=== PATIENT | male | born 1960 | race Caucasian/White ===

== ENCOUNTER 2025-02-20 15:02 | Outpatient (OUT) | payer BC, SELFPAY ==
--- OUTSIDE RECORDS SUMMARY | 2025-02-11 16:00 | XMS_ITS | Encounter Summary ---
Author Organization [facility] Address [address] [place] [address] Care Team Providers Care Packager And Strapper Name Role Phone Veronica Hall ERNESTO - CAR PORTER Primary Care Pro vider Reason for Visit * Reason Comments New Patient New patient is here today for Elevated PSA. PSA is 2.44. Patient denies new onset hip/back pain, unintentional weight loss, hematuria, dysuria, frequency, incontinence or hesitancy. Nocturia X0-1. Patient has daily BM. Encounter Details Date Type Department Care Team (Late st Contact Info) Description 02/11/2025 4:00 PM EDT Office Visit [facility] Part of [address] [address] Mansoor Gonzalez MD [address] [place] [address], [facility] [address] [place] [address] Increased prostate specific antigen (PSA) velocity (Primary Dx) Social History Tobacco Use Types Packs/Day Years Used Date Smoking Tobacco: Never Smokeless Tobacco: Never Alcohol Use Standard Drinks/Week Comments Yes 12 (1 standard drink = 0.6 oz pu re alcohol) Sex and Gender Information Value Date Recorded Sex Assigned at Not on file Legal Sex Male 2:33 PM EST Gender Identity Not on file Sexual Orientation Not on file documented as of this encounter Last Filed Vital Signs Vital Sign Reading Time Taken Comments Blood Pressure 130/80 02/11/2025 3:56 PM EDT Pulse - - Temperature 36.4 C (97.5 F) 02/11/2025 3:56 PM EDT Respiratory Rate - - Oxygen Saturation - - Inhaled Oxygen Concentration - - Weight 75.3 kg (166 lb) 02/11/2025 3:56 PM EDT Height - - Body Mass Index 26 02/22/2022 9:55 AM EDT documented in this encounter Patient Instructions * Patient Instructions* Alicja Lopez RN - 02/11/2025 3:53 PM EDT Survey: You may be receiving a survey from [employer] regarding your visit today. Please complete the survey to enable us to provide the highest quality of care to you and your family. If you cannot score us as very good on any question, please call the office to discuss how we couldhave major experience exceptional. Thank you Your Urology Care Team. documented in this encounter Progress Notes * Mansoor Gonzalez MD - 02/11/2025 4:27 PM EDT HPI: Patient is a 64 y.o. male in no acute distress. He is alert and oriented to person, place, and time. Pt is here today for elevated PSA velocity. Pt was referred here by Veronica Jolly CNP. Pt does have a paternal uncle with prostate cancer. Pt has never seen in the past. Patient does reportthat his PSA has gone up recently. Patient does not have any family history of breast cancer or ovarian cancer. Patient has minimal lower urinary tract symptoms. He reports no gross hematuria or dysuria. He is never take any medication open void. Patient has no unintentional weight loss decreased appetite. No pain today. PSA 12/2024 - 2.44 Past Medical History: Diagnosis Date Gout Past Surgical History: Procedure Laterality Date APPENDECTOMY LEG SURGERY Left ORIF tibial plateau LEG SURGERY Left 02/22/2022 TIBIAL PLATEAU OPEN REDUCTION INTERNAL FIXATION performed by Gael Pagan MD at [facility] OR Outpatient Encounter Medications as of 02/11/2025 Medication Sig Dispense Refill methylPREDNISolone (MEDROL) 4 MG tablet Take 1 tablet by mouth as needed allopurinol (ZYLOPRIM) 100 MG tablet Take 1 tablet by mouth daily [DISCONTINUED] rivaroxaban (XARELTO) 10 MG TABS tablet Take 1 tablet by mouth daily (with breakfast) 12 tablet 0 No facility-administered encounter medications on file as of 02/11/2025. Current Outpatient Medications on File Prior to Visit Medication Sig Dispense Refill allopurinol (ZYLOPRIM) 100 MG tablet Take 1 tablet by mouth daily No current facility-administered medications on file prior to visit. Patient has no known allergies. Family History Problem Relation Age of Onset Heart Disease Father Heart Disease Mother Social History Tobacco Use Smoking Status Never Smokeless Tobacco Never Social History Substance and Sexual Activity Alcohol Use Yes Alcohol/week: 12.0 standard drinks of alcohol Types: 12 Cans of beer per week BP 130/80 Temp 97.5 ??F (36.4 ??C) (Infrared) Wt 75.3 kg (166 lb) BMI 26.00 kg/m?? PHYSICAL EXAM: Constitutional: Patient in no acute distress; Neuro: alert and oriented to person place and time. Psych: Mood and affect normal. Skin: Normal Lungs: Respiratory effort normal Cardiovascular: Normal peripheral pulses Abdomen: Soft, non-tender, non-distended with no CVA, flank pain Bladder non-tender and not distended. Lymphatics: no palpable lymphadenopathy Penis normal Urethral meatus normal Scrotal exam normal Testicles normal bilaterally Epididymis normal bilaterally No evidence of inguinal hernia Lab Results Component Value Date BUN 9 02/23/2022 Lab Results Component Value Date CREATININE 1.10 02/23/2022 No results found for: PSA ASSESSMENT: This is a 64 y.o. male with the following diagnoses: Diagnosis Orders 1. Increased prostate specific antigen (PSA) velocity PSA, Diagnostic PLAN: We will plan for repeat PSA in 6 months. documented in this encounter Plan of Treatment Upcoming Encounters Date Type Department Care Team (Late st Contact Info) Description 08/16/2025 10:00 AM EST Office Visit [facility] Part of [address] [place] [address] Mansoor Gonzalez MD [address] [place] [address], [address] [place] [address] 6 months PSA Scheduled Orders Name Type Priority Associated Diagnoses Orde r Schedule PSA, Diagnostic Lab Routine Increased prostate specific antigen (PSA) velocity Expected: 08/10/2025, Expires: 02/11/2026 documented as of this encounter Visit Diagnoses Diagnosis Increased prostate specific antigen (PSA) velocity- Primary Elevated prostate specific antigen (PSA) documented in this encounter Care Teams Packager And Strapper Relationship Specialty Start Date End Date Veronica Hall APRN - SOPHIE [address] [place] [address] PCP - General 02/11/25 documented as of this encounter
--- OUTSIDE RECORDS SUMMARY | 2025-02-20 15:09 | XMS_ITS | Encounter Summary ---
Author Organization [facility] Address [address] [place] [address] Care Team Providers Care Foreign Food Cook Specialty Name Role Phone Veronica Hall APRN, CNP Primary Care Pro vider Encounter Details Date Type Department Care Team (Late Contact Info) Description 02/12/2025 Abstract [facility] [address] [place] [phone] Mansoor Gonzalez MD [address] [place] [address] [address] [place] [address] Social History Tobacco Use Types Packs/Day Years [...] on file documented as of this encounter Plan of Treatment Upcoming Encounters Date Type Department Care Team (Late Contact Info) Description 08/16/2025 10:00 AM EST Office Visit [facility] [address] [place] [address] Mansoor Gonzalez MD [address] [place] [address] [address] [place] [id number] 6 months PSA documented as of this encounter Visit Diagnoses Not on filedocumented in this encounter Care Teams Foreign Food Cook Specialty Relationship Specialty Start Date End Date Veronica Hall APRN - CNP [address] [place] [address] PCP - General 02/11/25 documented as of this encounter
--- OUTSIDE RECORDS SUMMARY | 2025-02-20 15:09 | XMS_ITS | Encounter Summary ---
Author Organization [facility] Address [address] [place] [address] Care Team Providers Care Sweat Band Separator Name Role Phone Veronica Hall ERNESTO - SHOT PEENING OPERATOR Primary Care Pro vider Encounter Details Date Type Department Care Team (Late st Contact Info) Description 02/12/2025 Orders Only [facility] of [address] [place] [address] ProviderSee MD Social History Tobacco Use Types Packs/Day Years [...] Description 08/16/2025 10:00 AM EST Office Visit [facility] [address] [place] [address] Mansoor Gonzalez MD [address] [place] [address], [address] [place] [id number] 6 months PSA documented as of this encounter Procedures Procedure Name Priority Date/Time Associated Diagnosis Comments PSA, DIAGNOSTIC Routine 01/05/2025 1:18 PM EDT documented in this encounter Results * PSA, Diagnostic (01/05/2025 1:18 PM EDT) PSA 2.440 ng/mL BLOOD SPECIMEN / Unknown us Historical Provider CHEMISTRY ORDERABLES Edit ed Result - Final documented in this encounter Visit Diagnoses Not on filedocumented in this encounter Care Teams Sweat Band Separator Relationship Specialty Start Date End Date Veronica Hall APRN - SOPHIE [address] [place] [address] PCP - General 02/11/25 documented as of this encounter
--- OUTSIDE RECORDS SUMMARY | 2025-02-20 15:10 | XMS_ITS | Encounter Summary ---
Author Organization [facility] Address [address] [place] [address] Care Team Providers Care Intermediate Card Tender Name Role Phone Veronica Hall ERNESTO - MANAGER UTILIZATION REVIEW Primary Care Pro vider Encounter Details Date Type Department Care Team (Late st Contact Info) Description 02/11/2025 Orders Only [facility] Part of [address] [place] [address] ProviderSee MD Social History Tobacco Use Types [...] Description 08/16/2025 10:00 AM EST Office Visit [facility] [address] [place] [address] Mansoor Gonzalez MD [address] [place] [address], [address] [place] [id number] 6 months PSA documented as of this encounter Procedures Procedure Name Priority Date/Time Associated Diagnosis Comments LIPID PANEL Routine 01/04/2025 9:20 AM EDT COMPREHENSIVE METABOLIC PANEL Routine 01/04/2025 9:20 AM EDT PSA SCREENING Routine 01/04/2025 9:18 AM EDT CBC Routine 01/04/2025 9:17 AM EDT URIC ACID Routine 01/04/2025 9:16 AM EDT documented in this encounter Results * Lipid Panel (01/04/2025 9:20 AM EDT) Blood BLOOD SPECIMEN / Unknown Result [facility] Provider CHEMISTRY ORDERABLES Dianne l Result * Comprehensive Metabolic Panel (01/04/2025 9:20 AM EDT) Blood BLOOD SPECIMEN / Unknown Result [facility] Provider CHEMISTRY ORDERABLES Dianne l Result * PSA Screening (01/04/2025 9:18 AM EDT) Blood BLOOD SPECIMEN / Unknown Result [facility] Provider CHEMISTRY ORDERABLES Dianne l Result * CBC (01/04/2025 9:17 AM EDT) Blood BLOOD SPECIMEN / Unknown Result [facility] Provider HEMATOLOGY ORDERABLES Fin al Result * Uric Acid (01/04/2025 9:16 AM EDT) Blood BLOOD SPECIMEN / Unknown Result [facility] Provider CHEMISTRY ORDERABLES Dianne l Result documented in this encounter Visit Diagnoses Not on filedocumented in this encounter Care Teams Intermediate Card Tender Relationship Specialty Start Date End Date Veronica Hall APRN - MANAGER UTILIZATION REVIEW [address] [place], [place] [id number] PCP - General 02/11/25 documented as of this encounter
--- OUTSIDE RECORDS SUMMARY | 2025-02-20 15:10 | XMS_ITS | Clinical Summary ---
Author Organization [facility] Address [address] [place] [address] Care Team Providers Care Systems Auditor Name Role Phone Veronica Hall ERNESTO - CORPORATE LAWYER Primary Care Pro vider Allergies No known active allergies Medications allopurinol (ZYLOPRIM) 100 MG tablet Take 1 tablet by mouth daily Active methylPREDNISol one (MEDROL) 4 MG tablet Take 1 tablet by mouth as needed Active rivaroxaban (XARELTO) 10 MG TABS tablet Take 1 tablet by mouth daily (with breakfast) 12 tablet 2 02/12/20 25 Discontinu ed(LIST CLEANUP) Active Problems Problem Noted Date Diagnosed Date Left knee pain 02/21/2022 Acute pain of left knee 02/21/2022 Closed bicondylar fracture of left tibial platea u 02/21/2022 Encounters Date Type Department Care Team Description 02/12/2025 Orders Only [facility] Part of [address] [place] [address] ProviderSee MD 02/12/2025 Abstract [facility] Part [address] [place] [address] Mansoor Gonzalez MD 02/12/2025 Telephone [facility] [address] [place] [address] Viktoria Padilla APRN - CORPORATE LAWYER Results 02/11/2025 4:00 PM EDT Office Visit [facility] [address] [place] [address] Mansoor Gonzalez MD Increased prostate specific antigen (PSA) velocity (Primary Dx) 02/11/2025 Orders Only [facility] [address] [place] [address] ProviderSee MD 02/11/2025 Abstract [facility] Part of [address] [place] [address] Jayla Vázquez RN from Last 3 Months Family History Medical History Relation Name Comments Heart Disease Father Heart Disease Mother Relation Name Status Comments Father Mother Social History Tobacco Use Types Packs/Day Years Used Date Smoking Tobacco: Never Smokeless Tobacco: Never Alcohol Use Standard Drinks/Week Comments Yes 12 (1 standard drink = 0.6 oz pu re alcohol) Sex and Gender Information Value Date Recorded Sex Assigned at Not on file Legal Sex Male 2:33 PM EST Gender Identity Not on file Sexual Orientation Not on file Last Filed Vital Signs Vital Sign Reading Time Taken Comments Blood Pressure 130/80 02/11/2025 3:56 PM EDT Pulse 80 02/23/2022 7:02 AM EDT Temperature 36.4 C (97.5 F) 02/11/2025 3:56 PM EDT Respiratory Rate 20 02/23/2022 12:10 PM EDT Oxygen Saturation 96% 02/23/2022 7:02 AM EDT Inhaled Oxygen Concentration - - Weight 75.3 kg (166 lb) 02/11/2025 3:56 PM EDT Height 170.2 cm (5' 7 ) 02/22/2022 9:55 AM EDT Body Mass Index 26 02/22/2022 9:55 AM EDT Plan of Treatment Upcoming Encounters Date Type Department Care Team (Late st Contact Info) Description 08/16/2025 10:00 AM EST Office Visit [facility] of [address] [place] [address] Mansoor Gonzalez MD [address] [place] [address], [address] [place] [address] 6 months PSA Health Maintenance Due Date Last Done Comments Depression Screen 1973 HIV screen 1976 Hepatitis C screen 1979 DTaP/Tdap/Td vaccine (1 - Tdap) 1980 Colonoscopy 2006 Colorectal Cancer Screen 2006 FIT/FOBT: Average risk 2006 Fecal-DNA (Cologuard): Average risk 2006 Sigmoidoscopy/CT colonography 2006 Pneumococcal 50+ years Vaccine (1 of 1 - PCV) 2011 Shingles vaccine (1 of 2) 2011 COVID-19 Vaccine (1 - 2023-2 5 season) 2024 Flu vaccine (Season Ended) 2025 Lipids 01/04/2030 01/04/2025 Respiratory Syncytial Virus (RSV) or age 60 yrs+ (1 - 1-dose 75+ series) 2036 Prostate Specific Antigen (PSA) Screening or Monitoring Discontinued 01/05/2025, 01/04/2025 Hepatitis A vaccine Aged Out No longe r eligible based on patient's age to complete this topic Hepatitis B vaccine Aged Out No longe r eligible based on patient's age to complete this topic Hib vaccine Aged Out No longer eligi ble based on patient's age to complete this topic Meningococcal (ACWY) vaccine Aged Out No longer eligible based on patient's age to complete this topic Meningococcal B vaccine Aged Out No l onger eligible based on patient's age to complete this topic Polio vaccine Aged Out No longer elig ible based on patient's age to complete this topic Medical Devices Implanted Type Area Academic Support Specialist Device Identifier Shelf Expiration Date Model / Serial / Lot Screw Bne L36mm Dia3.5mm Sukhwinder S Stl St Noncannulated Christian - [id number] Implanted:Qty: 1 on 02/22/2022 by Gael Pagan MD at [facility] Left: Knee DEPUY SYNTHES Zolpy-WD [id number] / / Screw Bne L32mm Dia3.5mm Sukwhinder S Stl St Noncannulated Christian - [id number] Implanted:Qty: 1 on 02/22/2022 by Gael Pagan MD at [facility] Left: Knee DEPUY SYNTHES Advisity [id number] / / Screw Bne L70mm Dia3.5mm Prox Tib S Stl St Full Thrd T15 - [id number] Implanted:Qty: 2 on 02/22/2022 by Gael Pagan MD at [facility] Left: Knee DEPUY SYNTHES Advisity [id number] / / Screw Bne L75mm Dia3.5mm Prox Tib S Stl St Full Thrd T15 - [id number] Implanted:Qty: 1 on 02/22/2022 by Gael Pagan MD at [facility] Left: Knee DEPUY SYNTHES Advisity [id number] / / Screw Bne L56mm Dia3.5mm Prox Tib S Stl St Full Thrd T15 - [id number] Implanted:Qty: 1 on 02/22/2022 by Gael Pagan MD at [facility] Left: Knee DEPUY SYNTHES Advisity [id number] / / Screw Bne L54mm Dia3.5mm Prox Tib S Stl St Full Thrd T15 - [id number] Implanted:Qty: 1 on 02/22/2022 by Gael Pagan MD at [facility] Left: Knee DEPUY SYNTHES Advisity [id number] / / Plate Bne L93mm 4 H Nonsterile L Med Prox Tib S Stl Christian - [id number] Implanted:Qty: 1 on 02/22/2022 by Gael Pagan MD at [facility] Left: Knee DEPUY SYNTHES Advisity [id number] / / Explanted Type Area Academic Support Specialist Device Identifier Shelf Expiration Date Model / Serial / Lot Screw Bne L28mm Dia3.5mm Sukhwinder S Stl St Noncannulated Christian - [id number] Explanted:Qty: 1 on 02/22/2022 at [facility] Left: Knee DEPUY SYNTHES Advisity [id number] / / Screw Bne L38mm Dia3.5mm Sukhwinder S Stl St Noncannulated Christian - [id number] Explanted:Qty: 1 on 02/22/2022 at [facility] Left: Knee DEPUY SYNTHES Advisity [id number] / / Procedures Procedure Name Priority Date/Time Associated Diagnosis Comments PSA, DIAGNOSTIC Routine 01/05/2025 1:18 PM EDT LIPID PANEL Routine 01/04/2025 9:20 AM EDT COMPREHENSIVE METABOLIC PANEL Routine 01/04/2025 9:20 AM EDT PSA SCREENING Routine 01/04/2025 9:18 AM EDT CBC Routine 01/04/2025 9:17 AM EDT URIC ACID Routine 01/04/2025 9:16 AM EDT from Last 3 Months Results * PSA, Diagnostic (01/05/2025 1:18 PM EDT) PSA 2.440 ng/mL BLOOD SPECIMEN / Unknown [facility] Provider CHEMISTRY ORDERABLES Edit ed Result - Final * Lipid Panel (01/04/2025 9:20 AM EDT) Blood BLOOD SPECIMEN / Unknown [facility] Provider CHEMISTRY ORDERABLES Dianne l Result * Comprehensive Metabolic Panel (01/04/2025 9:20 AM EDT) Blood BLOOD SPECIMEN / Unknown [facility] Provider CHEMISTRY ORDERABLES Dianne l Result * PSA Screening (01/04/2025 9:18 AM EDT) Blood BLOOD SPECIMEN / Unknown [facility] Provider CHEMISTRY ORDERABLES Dianne l Result * CBC (01/04/2025 9:17 AM EDT) Blood BLOOD SPECIMEN / Unknown [facility] Provider HEMATOLOGY ORDERABLES Fin al Result * Uric Acid (01/04/2025 9:16 AM EDT) Blood BLOOD SPECIMEN / Unknown us Historical Provider CHEMISTRY ORDERABLES Dianne l Result from Last 3 Months Insurance BCBS OUT OF STATE Advance Directives * Full Code (Latest Code Status on File) Date Activated Date Inactivated Comments 02/21/2022 12:30 PM 02/23/2022 6:11 PM * Full Code Date Activated Date Inactivated Comments 02/21/2022 9:18 AM 02/21/2022 12:30 PM Healthcare Agents on File Name Relationship Healthcare Agent Relationshi p Communication Val Eaken Spouse Primary Decision Maker Care Teams Systems Auditor Relationship Specialty Start Date End Date Veronica Hall APRN - CNP [address] [place] [address] PCP - General 02/11/25
--- OUTSIDE RECORDS SUMMARY | 2025-02-20 15:10 | XMS_ITS | Patient Health Record ---
Author Organization [facility] Address [address] [place] [address] Care Team Providers Care Psychology Tech Name Role Phone Aditya Washington DO Primary Care Provider Gael Diamond [phone] Allergies No Known Allergies Reason For Referral No Information Medications Medication SIG (Take, Route, Frequency, Duration) Notes Start Date End Date Status Allopurinol Active Problems Problem Type SNOMED Code ICD Code Onset Dates Problem Status W/U Status Risk Notes Problem Left knee pain (6952257604920 09) Left knee pain (M25.562) Active confirmed Problem Closed displaced bicondylar fracture of left tibia with routine healing (S82.142D) Active confirmed Problem Closed fracture of upper end of tibia (62683174) Closed fracture of left tibial plateau, initial encounter (S82.142A) Active confirmed Problem Fall () Injury due to fall (W19.XXXA) Active confirmed Problem 580288661 Encounter for other orthopedic aftercare (Z47.89) Active confirmed Plan Of Treatment No Information Insurance Providers Payer Name Payer Address Payer Phone Subscriber Number Group Number Insured Name Patient Relationship to Insured Coverage Start Date Coverage End Date Medical [place] [address] [address] [place] [address] [id number] HERMILA MOY Self - patient is the insured 2 Medical (General) History Surgical History Surgery Date(Month/Year) appendex ORIF of a left tibial plateau fracture 0 01/2022
--- OUTSIDE RECORDS SUMMARY | 2025-02-20 15:10 | XMS_ITS | Encounter Summary ---
Author Organization [facility] Address [address] [place] [address] Care Team Providers Care Pharmacology Professor Name Role Phone LaureanoVeronica burkett RIGGER HELPER - DELINQUENT NOTICE MACHINE OPERATOR Primary Care Pro vider Reason for Visit * Reason Onset Date Comments Results 02/12/2025 Encounter Details Date Type Department Care Team (Late Contact Info) Description 02/12/2025 Telephone [facility] [address] [place] [address] Viktoria Padilla, RIGGER HELPER - DELINQUENT NOTICE MACHINE OPERATOR [address] [place] [address] [address] [place] [address] Results Social History Tobacco Use Types Packs/Day Years [...] Description 08/16/2025 10:00 AM EST Office Visit [facility] [place] [address] Mansoor Gonzalez MD [address] [place] [address], [address] [place] [address] 6 months PSA documented as of this encounter Visit Diagnoses Not on filedocumented in this encounter Care Teams Pharmacology Professor Relationship Specialty Start Date End Date Veronica Hall APRN - SOPHIE [address] [place] [address] PCP - General 02/11/25 documented as of this encounter
--- OUTSIDE RECORDS SUMMARY | 2025-02-20 15:10 | XMS_ITS | Encounter Summary ---
Author Organization [facility] Address [address] [place] [address] Care Team Providers Care Grievance And Appeals Specialist Name Role Phone Veronica Hall APRN, CNP Primary Care Pro vider Encounter Details Date Type Department Care Team (Late st Contact Info) Description 02/11/2025 Abstract [facility] [address] [place] [address] Jayla Vázquez RN Social History Tobacco Use Types Packs/Day Years [...] Description 08/16/2025 10:00 AM EST Office Visit [facility] [address] [place] [address] Mansoor Gonzalez MD [address] [place] [address], [address] [place] [address] 6 months PSA documented as of this encounter Visit Diagnoses Not on filedocumented in this encounter Care Teams Grievance And Appeals Specialist Relationship Specialty Start Date End Date Veronica Hall APRN - CNP [address] [place] [address] [phone] (Fax) PCP - General 02/11/25 documented as of this encounter
[2025-02-21 15:08] LABS: Lipoprotein (a) 92.3 nmol/L (<75.0)
== END 2025-02-20 15:03 | disposition home or self-care (01) ==
LOC: LAB 15:06
PROVIDERS: PCP Nurse Practitioner Family; Visit Provider Student in an Organized Health Care Education/Training Program
DX: E78.5 Hyperlipidemia, unspecified (principal); Z82.49 Family history of ischemic heart disease and other diseases of the circulatory system
CPT/HCPCS: 36415